=== PATIENT | female | born 1970 | race Caucasian/White ===

== ENCOUNTER 2018-06-13 16:03 | Emergency (ER) | payer MEDICAID ==
[~2018-06-13] VITALS: Ht 162.6 cm; Wt 90.0 kg
[~2018-06-13 16:03] MED LIST: ALBU18HF2 INH; ATRIN INH; IBUP-1986 PO; VENL75CA61 PO
[2018-06-13] MEDS ORDERED: normal saline 1000ML IV soln IVB ONE (18:20)
[2018-06-13 18:57] LABS: BASOPHILS % (AUTO) 0.2 % (0-1); EOSINOPHILS # (AUTO) 0.2 X10'3 (0-0.9); EOSINOPHILS % (AUTO) 2.6 % (0-6); HEMATOCRIT 30.9 % (35.0-45.0); HEMOGLOBIN 9.3 g/dl (12.0-16.0); LYMPHOCYTES # (AUTO) 1.9 X10'3 (1.1-4.8); LYMPHOCYTES % (AUTO) 24.1 % (21-51); MEAN CORPUSCULAR HEMOGLOBIN 17.5 PG (27.0-31.0); MEAN CORPUSCULAR HGB CONC 30.1 % (33.0-36.5); MEAN CORPUSCULAR VOLUME 58.1 FL (78-98); MEAN PLATELET VOLUME 8.3 FL (7.4-10.4); MONOCYTES # (AUTO) 0.7 X10'3 (0-0.9); MONOCYTES % (AUTO) 8.4 % (2-12); NEUTROPHILS # (AUTO) 5.1 X10'3 (1.8-7.7); NEUTROPHILS % (AUTO) 64.7 % (42-75); PLATELET COUNT 310 X10'3 (140-440); RED BLOOD COUNT 5.32 X10'6 (4.20-5.60); WHITE BLOOD COUNT 7.8 X10'3 (4.5-11.0)
[2018-06-13 19:04] LABS: ALANINE AMINOTRANSFERASE 191 U/L (12-78); ALBUMIN 2.9 G/DL (3.4-5.0); ALBUMIN/GLOBULIN RATIO 0.6 (1.1-1.5); ALKALINE PHOSPHATASE 365 IU/L (46-116); ANION GAP 15 (8-16); ASPARTATE AMINO TRANSFERASE 173 U/L (10-37); BILIRUBIN,TOTAL 0.3 MG/DL (0.1-1.0); BLOOD UREA NITROGEN 11 MG/DL (7-18); BUN/CREATININE RATIO 13.4 (6.6-38.0); CHLORIDE 96 MMOL/L (99-107); CREATININE 0.82 MG/DL (0.40-0.90); GLUCOSE 418 MG/DL (70-104); LIPASE 243 U/L (73-393); POTASSIUM 3.7 MMOL/L (3.5-5.1); SODIUM 133 MMOL/L (135-145); TOTAL CARBON DIOXIDE 22.3 MMOL/L (24-32); TOTAL PROTEIN 7.7 G/DL (6.4-8.2); eGFR 75 ML/MIN
[2018-06-13 19:33] LABS: URINE HCG NEGATIVE (NEG)
[2018-06-13 19:40] LABS: CLARITY,URINE CLEAR (Clear); COLOR,URINE YELLOW (Yellow); GLUCOSE, URINE >=1000 mg/dl (Neg); KETONES,URINE NEGATIVE (Neg); LEUKOCYTE ESTERASE ,URINE NEGATIVE (Neg); NITRITES, URINE NEGATIVE (Neg); OCCULT BLOOD,URINE NEGATIVE (Neg); PH,URINE 5.5 (4.8-8.0); PROTEIN,URINE NEGATIVE (Neg); UROBILINOGEN,URINE 0.2 E.U/dL (0.2-1.0)
[2018-06-13 19:41] LABS: UA COLLECTION TYPE CLN CATCH MIDSTREAM
[2018-06-13] MEDS ORDERED: insulin regular, human 10 units/0.1 ml syringe IV ONE (19:50)
[2018-06-13 19:59] LABS: BACTERIA,URINE FEW /HPF (Neg); RBC,URINE 0-2 /HPF (0-2); SQUAMOUS EPITHELIAL CELL,UR MODERATE /LPF (FEW); WBC,URINE 0-4 /HPF (0-4)
[2018-06-13 20:38] LABS: ANISOCYTOSIS 2+; MICROCYTOSIS 3+; PLATELET ESTIMATE NORMAL
[2018-06-13 20:40] LABS: HYPOCHROMASIA 1+; POLYCHROMASIA 1+
[2018-06-13] MEDS ORDERED: METF500T PO (21:09)
[2018-06-13] MEDS ORDERED: FAMO20TA8 PO (21:09)
[2018-06-13 21:25] VITALS: BP 133/61
== END 2018-06-13 21:27 | disposition home or self-care (01) ==
LOC: ER 16:04
DX: R13.10 Dysphagia, unspecified (principal); E11.9 Type 2 diabetes mellitus without complications; Z79.84 Long term (current) use of oral hypoglycemic drugs
CPT/HCPCS: 36415; 80053; 81001; 81025; 82948; 83690; 85025; 96374; 99283; J1815; J7030

== ENCOUNTER 2021-07-12 13:14 | Emergency (ER) | payer MEDICAID ==
[~2021-07-12] VITALS: Ht 162.6 cm; Wt 86.0 kg
[~2021-07-12 13:14] MED LIST changes: +FAMO20TA8 PO
[2021-07-12 13:51] VITALS: BP 144/91
--- NOTE | 2021-07-12 19:00 | NUR ---
not in lobby
--- NOTE | 2021-07-12 19:15 | NUR ---
not in lobby
--- NOTE | 2021-07-12 19:30 | NUR ---
not in lobby
== END 2021-07-12 21:47 | disposition left against medical advice (07) ==
LOC: ER 13:15
DX: E11.9 Type 2 diabetes mellitus without complications (principal); R20.2 Paresthesia of skin; Z53.21 Procedure and treatment not carried out due to patient leaving prior to being seen by health care provider
CPT/HCPCS: 82948

== ENCOUNTER 2021-07-13 17:58 | Emergency (ER) | payer MEDICAID ==
[~2021-07-13] VITALS: Ht 162.6 cm; Wt 86.4 kg
[2021-07-13 18:01] VITALS: BP 164/95
[2021-07-13 18:32] LABS: ALANINE AMINOTRANSFERASE 28 U/L (12-78); ALBUMIN 3.6 G/DL (3.4-5.0); ALBUMIN/GLOBULIN RATIO 0.7 (1.1-1.5); ALKALINE PHOSPHATASE 171 IU/L (46-116); ANION GAP 9 (8-16); ASPARTATE AMINO TRANSFERASE 14 U/L (10-37); BILIRUBIN,TOTAL 0.3 MG/DL (0.1-1.0); BLOOD UREA NITROGEN 13 MG/DL (7-18); BUN/CREATININE RATIO 16.5 (6.6-38.0); CALCIUM 9.3 MG/DL (8.5-10.1); CHLORIDE 97 MMOL/L (99-107); CREATININE 0.79 MG/DL (0.40-0.90); GLUCOSE 247 MG/DL (70-104); POTASSIUM 4.1 MMOL/L (3.5-5.1); SODIUM 133 MMOL/L (135-145); TOTAL CARBON DIOXIDE 26.6 MMOL/L (24-32); TOTAL PROTEIN 8.5 G/DL (6.4-8.2); eGFR 77 ML/MIN
[2021-07-13 18:33] LABS: BASOPHILS # (AUTO) 0.1 X10'3 (0-0.2); BASOPHILS % (AUTO) 0.7 % (0-1); EOSINOPHILS # (AUTO) 0.4 X10'3 (0-0.9); EOSINOPHILS % (AUTO) 3.2 % (0-6); HEMATOCRIT 29.7 % (35.0-45.0); HEMOGLOBIN 9.1 g/dl (12.0-16.0); LYMPHOCYTES # (AUTO) 3.1 X10'3 (1.1-4.8); LYMPHOCYTES % (AUTO) 24.8 % (21-51); MEAN CORPUSCULAR HEMOGLOBIN 17.7 PG (27.0-31.0); MEAN CORPUSCULAR HGB CONC 30.7 g/dL (33.0-36.5); MEAN CORPUSCULAR VOLUME 57.5 FL (78-98); MEAN PLATELET VOLUME 8.3 FL (7.4-10.4); MONOCYTES # (AUTO) 0.7 X10'3 (0-0.9); MONOCYTES % (AUTO) 5.6 % (2-12); NEUTROPHILS # (AUTO) 8.1 X10'3 (1.8-7.7); NEUTROPHILS % (AUTO) 65.7 % (42-75); PLATELET COUNT 455 X10'3 (140-440); RED BLOOD COUNT 5.17 X10'6 (4.20-5.60); RED CELL DISTRIBUTION WIDTH 21.2 % (11.5-14.5); WHITE BLOOD COUNT 12.4 X10'3 (4.5-11.0)
[2021-07-13 19:08] LABS: ANISOCYTOSIS 3+; PLATELET ESTIMATE INCREASED
[2021-07-13 19:09] LABS: MICROCYTOSIS 3+
[2021-07-13 19:12] LABS: POLYCHROMASIA FEW
[2021-07-13 19:13] LABS: ELLIPTOCYTES FEW; TARGET CELLS FEW; TEAR DROP CELLS FEW
== END 2021-07-14 03:08 | disposition left against medical advice (07) ==
LOC: ER 17:59
DX: R20.2 Paresthesia of skin (principal); Z53.21 Procedure and treatment not carried out due to patient leaving prior to being seen by health care provider
CPT/HCPCS: 36415; 80053; 82948; 85008; 85025

== ENCOUNTER 2022-11-01 17:05 | Emergency (ER) | payer MEDICAID ==
[~2022-11-01] VITALS: Ht 162.6 cm; Wt 91.0 kg
[2022-11-01 17:39] VITALS: BP 148/93
== END 2022-11-01 18:06 | disposition home or self-care (01) ==
LOC: ER 17:06
DX: Z02.79 Encounter for issue of other medical certificate (principal); E11.9 Type 2 diabetes mellitus without complications
CPT/HCPCS: 99281

== ENCOUNTER 2024-10-23 20:54 | Emergency (ER) | payer MEDICAID ==
[~2024-10-23] VITALS: Ht 162.6 cm; Wt 86.8 kg
[2024-10-23 21:00] VITALS: BP 168/90; PULSE 118; RESP 16; TEMP 98.4; O2SAT 99
[2024-10-24] MEDS ORDERED: PRED10TA23 PO (20:47)
[2024-10-24] MEDS ORDERED: AZIT500T9 PO (20:47)
[2024-10-24] MEDS ORDERED: AZIT250T13 PO (20:48)
== END 2024-10-24 00:54 | disposition left against medical advice (07) ==
LOC: ER 20:55
DX: R05.9 Cough, unspecified (principal); R09.81 Nasal congestion; R50.9 Fever, unspecified; Z53.21 Procedure and treatment not carried out due to patient leaving prior to being seen by health care provider

== ENCOUNTER 2024-10-24 19:21 | Emergency (ER) | payer MEDICAID ==
[~2024-10-24] VITALS: Ht 162.6 cm; Wt 71.6 kg
[2024-10-24 19:33] VITALS: BP 134/65; PULSE 112; RESP 15; O2SAT 100
[2024-10-24] MEDS ORDERED: AZIT500T9 PO (20:47)
[2024-10-24] MEDS ORDERED: PRED10TA23 PO (20:47)
[2024-10-24] MEDS ORDERED: AZIT250T13 PO (20:48)
[2024-10-24 20:55] VITALS: TEMP 97.1
== END 2024-10-24 21:02 | disposition home or self-care (01) ==
LOC: ER 19:22
DX: J22 Unspecified acute lower respiratory infection (principal); E11.9 Type 2 diabetes mellitus without complications; Z79.899 Other long term (current) drug therapy; Z79.1 Long term (current) use of non-steroidal anti-inflammatories (NSAID); Z20.822 Contact with and (suspected) exposure to COVID-19
CPT/HCPCS: 36415; 87502; 87503; 87811; 99283

== ENCOUNTER 2024-11-02 12:32 | Emergency (ER) | payer MEDICAID ==
[~2024-11-02] VITALS: Ht 162.6 cm; Wt 88.2 kg
--- NOTE | 2024-11-02 13:40 | RADIOLOGY REPORT ---
CLINICAL INDICATION: fall TECHNIQUE: 3 views left foot DI FOOT, COMPLETE (3VW MIN) Comparison: None FINDINGS/IMPRESSION: : Linear lucency traversing the proximal phalanx of the left digit seen only on 1 view. Doubt fracture. If clinical symptoms persist, repeat films in 1 week in the frontal view is recommended.
--- NOTE | 2024-11-02 13:44 | RADIOLOGY REPORT ---
CLINICAL INDICATION: fall TECHNIQUE: 3 views left ankle DI ANKLE, COMPLETE(3VW MIN) Comparison: None FINDINGS/IMPRESSION: : There is no evidence of acute fracture or dislocation. Soft tissues are unremarkable.
[2024-11-02] MEDS ORDERED: IBUP-1984 PO (15:24)
--- NOTE | 2024-11-02 15:27 | Physician Documentation ---
History of Present Illness General Chief Complaint: Foot pain Stated Complaint: LEG PAIN Time Seen by MD: 14:25 Primary Medical Doctor: [facility] History of Present Illness Initial Comments 54-year-old female who presents to the emergency department for evaluation of left ankle and left foot injury. Reports two weeks ago she was stepping down on her 5th wheel and twisted her left ankle. Continues to have pain if that the ankle joint without deformity. Today while beginning to come to the hospitalist she twisted her left foot and injured her left toe. Reports that it was angulated and she relocated it. Medication Reconciliation Allergies: Coded Allergies: No Known Allergies (Unverified , 10/24/24) Scheduled Albuterol Sulfate (Ventolin Hfa), 2 PUFFS INH Q4HPRN, (Reported) Famotidine (Famotidine), 1 TAB PO Q12H Ibuprofen (Ibuprofen), 1 TAB PO Q8H, (Reported) Ibuprofen* (Motrin*), 400 MG PO Q8H Ipratropium [place] MDI* (Atrovent MDI*), 2 PUFFS INH QID, (Reported) Venlafaxine Hcl (Venlafaxine Hcl Er), 1 CAP PO DAILY, (Reported) Discontinued Medications Azithromycin (Azithromycin), 1 TAB PO UD Discontinued Reason: Auto Discontinued Prednisone (Prednisone), 1 TAB PO BID Discontinued Reason: Auto Discontinued Past Medical History Past Medical History: Bronchitis, Hernia, Diabetes Past Surgical History: no surgical history Lives with: Spouse Lives In: Home Physical Exam Physical Exam Vital Signs: RN Vital Signs have been reviewed: Yes, Temperature: 96.6, Source: Temporal, Heart Rate: 133, Respiratory Rate: 19, BP: 137/87, Pulse Oximetry: 96, Weight: 88.200 General Appearance: alert, WD/WN, mild distress Head: normal inspection Face: normal inspection Pupils/EOM/Fundus: PERRLA Respiratory: normal breath sounds Cardiovascular: normal peripheral pulses Extremities: normal range of motion, swelling Extremities No subtalar motion. No tenderness over the medial and lateral malleolus. Mild discomfort dorsiflexion and plantar flexion. Strong dorsalis pedis pulse. Neurologic: oriented x4 Psychiatric: normal mood/affect Skin: normal color Progress Results/Orders Results/Orders Orders - TAMAR GUTIÉRREZ PAC Ortho Orders (11/02/24 ) Completed Orders - TAMAR GUTIÉRREZ PAC Ibuprofen Tablet (Motrin Tablet) (11/02/24 15:30) Vital Signs 11/02/24 12:55 Temp 96.6 Pulse 133 Resp 19 B/P (MAP) 137/87 Pulse Ox 96 Medical Decision Making Differential Diagnosis Examination history warrant x-ray imaging of the foot of the ankle. X-rays of the ankles are reassuring for no acute fracture or dislocation. The left foot toe shows a transverse lucency that is likely indicative of fracture. Patient was placed in a cam walker boot for comfort and support. She will transition out of that in 7-14 days when able to bear weight. Recommendation to follow up with primary care and orthopedist for interval x-ray evaluation. Treated with Motrin. Departure Disposition: HOME / SELF CARE / HOMELESS Impression: Primary Impression: Ankle sprain Qualified Codes: S93.402A - Sprain of unspecified ligament of left ankle, initial encounter Additional Impression: Toe fracture, left Qualified Codes: S92.535A - Nondisplaced fracture of distal phalanx of left lesser toe(s), initial encounter for closed fracture Condition: Stable Discharge Instructions: Fracture, Foot, Sprains Additional Instructions: Please wear walking boot for 7-14 days. Take ibuprofen for pain or discomfort. Please return to the emergency department as needed and make follow up with with Orthopedist.. Referrals: NO PRIMARY CARE PROVIDER (PCP) Prescriptions Ibuprofen* (Motrin*) 400 Mg Tablet 400 MG PO Q8H, #20 TAB Prov: TAMAR GUTIÉRREZ 11/02/24 Education Educated: Patient Educated regarding: diagnosis Signature Scribe Signature: . Attestation: . TAMAR GUTIÉRREZ November 02, 2024 15:27
[2024-11-02] MEDS: ibuprofen tablet 400 MG TABLET PO ONE (15:55)
[2024-11-02 16:01] VITALS: BP 128/78; PULSE 115; RESP 16; TEMP 98.4; O2SAT 97
== END 2024-11-02 16:03 | disposition home or self-care (01) ==
LOC: ER 12:32
DX: S92.912A Unspecified fracture of left toe(s), initial encounter for closed fracture (principal); S93.402A Sprain of unspecified ligament of left ankle, initial encounter; E11.9 Type 2 diabetes mellitus without complications; X50.1XXA Overexertion from prolonged static or awkward postures, initial encounter; Y93.89 Activity, other specified; Y92.89 Other specified places as the place of occurrence of the external cause; Y99.8 Other external cause status
CPT/HCPCS: 73610; 73630; 99284; L4360